=== PATIENT | female | born 1965 | race Caucasian/White ===

== ENCOUNTER 2025-07-19 16:46 | Inpatient (IN) ==
[2025-07-19] MEDS: IPRATROPIUM/ALBUTEROL 3 ML AMPUL.NEB NEB ONE (17:39)
[2025-07-19 17:55] LABS: Basophils # (Auto) 0.08 K/mcL (0.00-0.30); Basophils % (Auto) 1.1 % (0.0-2.0); Eosinophils # (Auto) 0.10 K/mcL (0.00-0.70); Eosinophils % (Auto) 1.3 % (0.0-7.0); Hematocrit 33.9 % (34.1-44.9); Hemoglobin 12.1 g/dL (11.2-15.7); Lymphocytes # (Auto) 2.27 K/mcL (1.50-4.80); Lymphocytes % (Auto) 30.2 % (15.5-49.0); Mean Corpuscular HGB Conc 35.7 g/dL (31.0-36.0); Monocytes # (Auto) 1.00 K/mcL (0.10-0.90); Monocytes % (Auto) 13.3 % (1.0-12.0); Neutrophils % (Auto) 54.0 % (38.0-78.0); Platelet Count 239 K/mcL (140-440); RBC 3.56 M/mcL (3.59-5.38); WBC 7.5 K/mcL (4.5-11.0)
[2025-07-19] MEDS: ACETAMINOPHEN 1,000 MG/100 ML BAG IV ONE (17:58)
[2025-07-19 18:08] LABS: ALT/SGPT 32 U/L (<40); AST/SGOT 52 U/L (<32); Albumin 4.4 gm/dL (3.2-5.2); Albumin/Globulin Ratio 1.8 (1.0-2.3); Alkaline Phosphatase 73 U/L (39-117); Anion Gap 10.0 (8.0-16.0); Bilirubin,Total 1.2 mg/dL (0.1-1.0); Blood Urea Nitrogen 5 mg/dL (8-23); Calcium 9.2 mg/dL (8.6-10.4); Carbon Dioxide 24 mmol/L (22-30); Chloride 83 mmol/L (96-108); Globulin 2.4 gm/dL (2.2-3.7); Glucose 132 mg/dL (70-105); Potassium 3.7 mmol/L (3.3-5.1); Sodium 117 mmol/L (133-145)
[2025-07-19 19:16] LABS: Thyroid Stimulating Hormone 1.34 uIU/mL (0.27-5.01)
[2025-07-19] MEDS: 0.9 % SODIUM CHLORIDE 1,000 ML IV ONE (19:37)
[2025-07-19] MEDS ORDERED: ALBUTEROL SULFATE 2.5 MG/3 ML NEBULIZER NEB PRN (20:33)
[2025-07-19] MEDS ORDERED: LACTULOSE 20 GM/30 ML ORAL.SOL PO PRN (20:33)
[2025-07-19] MEDS ORDERED: SENNOSIDES 1 TABLET PO PRN (20:33)
[2025-07-19] MEDS: 0.9 % SODIUM CHLORIDE 1,000 ML IV SCH (20:45)
[2025-07-19] MEDS: 0.9 % SODIUM CHLORIDE 10 ML SYRINGE IV SCH (21:37)
[2025-07-19 21:44] LABS: Sodium, Urine Random 13 mmol/L
[2025-07-19 22:17] LABS: Bacteria,Urine 0 /hpf (0); Bilirubin,Urine NEGATIVE (Negative); Color,Urine LT. YELLOW; Glucose,Urine (UA) NEGATIVE (Negative); Ketones,Urine NEGATIVE (Negative); Leukocyte Esterase,Urine NEGATIVE /uL (Negative); PH,Urine 7.0 (5.0-9.0); Protein,Urine NEGATIVE (Negative); Specific Gravity,Urine <= 1.005 (1.000-1.035); Urobilinogen,Urine 0.2 mg/dL
[2025-07-19 23:56] LABS: Sodium 127 mmol/L (133-145)
[2025-07-20] MEDS: DEXTROSE 5% IN WATER 1,000 ML IV SCH ×2 (00:08→08:49)
[2025-07-20] MEDS: ACETAMINOPHEN 325 MG TABLET PO PRN (03:07)
[2025-07-20 03:24] LABS: Sodium 132 mmol/L (133-145)
[2025-07-20 05:50] LABS: ALT/SGPT 24 U/L (<40); AST/SGOT 38 U/L (<32); Albumin 3.9 gm/dL (3.2-5.2); Albumin/Globulin Ratio 1.9 (1.0-2.3); Alkaline Phosphatase 63 U/L (39-117); Anion Gap 7.0 (8.0-16.0); Bilirubin,Direct 0.5 mg/dL (<0.3); Bilirubin,Total 1.2 mg/dL (0.1-1.0); Blood Urea Nitrogen 4 mg/dL (8-23); Calcium 9.3 mg/dL (8.6-10.4); Carbon Dioxide 25 mmol/L (22-30); Chloride 100 mmol/L (96-108); Globulin 2.1 gm/dL (2.2-3.7); Glucose 139 mg/dL (70-105); Phosphorous 3.1 mg/dL (2.5-4.5); Potassium 4.0 mmol/L (3.3-5.1); Sodium 132 mmol/L (133-145); Triglycerides 54 mg/dL (<150); Uric Acid 4.0 mg/dL (2.5-8.0)
[2025-07-20] MEDS: ONDANSETRON 4 MG/2 ML VIAL IV PRN (07:44)
[2025-07-20] MEDS: ENOXAPARIN 40 MG/0.4 ML SYRINGE SQ SCH (08:42)
[2025-07-20] MEDS: NICOTINE POLACRILEX 2 MG GUM CHEW/PARK PRN (08:42)
[2025-07-20 09:42] LABS: Sodium 133 mmol/L (133-145)
[2025-07-20] MEDS ORDERED: LORazepam 2 MG/ML VIAL IV PRN (10:00)
[2025-07-20] MEDS: NICOTINE 21 MG PATCH TOPICAL SCH (10:22)
[2025-07-20] MEDS: THIAMINE 100 MG in 0.9 % SODIUM CHLORIDE 50 ML IV SCH (10:25)
[2025-07-20] MEDS: FOLIC ACID 1 MG TABLET PO SCH (10:25)
[2025-07-20] MEDS: MULTIVIT,THER IRON,CA,FA & MIN 1 TABLET PO SCH (10:25)
[2025-07-20] MEDS: LOSARTAN 50 MG TABLET PO SCH (11:12)
[2025-07-20] MEDS: FLUTICASONE/SALMETEROL 50/100 INHALER #14 INH SCH (11:14)
[2025-07-20] MEDS: 0.9 % SODIUM CHLORIDE 10 ML SYRINGE IV SCH (15:11)
[2025-07-20] MEDS: DIAZEPAM 5 MG TABLET PO SCH (19:15)
[2025-07-21 06:37] LABS: Basophils # (Auto) 0.05 K/mcL (0.00-0.30); Basophils % (Auto) 1.0 % (0.0-2.0); Eosinophils # (Auto) 0.19 K/mcL (0.00-0.70); Eosinophils % (Auto) 3.8 % (0.0-7.0); Hematocrit 38.5 % (34.1-44.9); Hemoglobin 13.0 g/dL (11.2-15.7); Lymphocytes # (Auto) 1.67 K/mcL (1.50-4.80); Lymphocytes % (Auto) 33.3 % (15.5-49.0); Mean Corpuscular HGB Conc 33.8 g/dL (31.0-36.0); Monocytes # (Auto) 0.66 K/mcL (0.10-0.90); Monocytes % (Auto) 13.1 % (1.0-12.0); Neutrophils % (Auto) 48.6 % (38.0-78.0); Platelet Count 205 K/mcL (140-440); RBC 3.86 M/mcL (3.59-5.38); WBC 5.0 K/mcL (4.5-11.0)
[2025-07-21 06:43] LABS: ALT/SGPT 27 U/L (<40); AST/SGOT 36 U/L (<32); Albumin 4.1 gm/dL (3.2-5.2); Albumin/Globulin Ratio 1.6 (1.0-2.3); Alkaline Phosphatase 65 U/L (39-117); Anion Gap 8.0 (8.0-16.0); Bilirubin,Direct 0.4 mg/dL (<0.3); Bilirubin,Total 0.9 mg/dL (0.1-1.0); Blood Urea Nitrogen 7 mg/dL (8-23); Calcium 9.7 mg/dL (8.6-10.4); Carbon Dioxide 25 mmol/L (22-30); Chloride 103 mmol/L (96-108); Globulin 2.5 gm/dL (2.2-3.7); Glucose 96 mg/dL (70-105); Phosphorous 4.1 mg/dL (2.5-4.5); Potassium 4.5 mmol/L (3.3-5.1); Sodium 136 mmol/L (133-145); Triglycerides 83 mg/dL (<150); Uric Acid 3.7 mg/dL (2.5-8.0)
[2025-07-21] MEDS: DIAZEPAM 10 MG/2 ML SYRINGE IV PRN (10:00)
[2025-07-21 11:46] VITALS: TEMP 97; O2SAT 100
== END 2025-07-21 11:35 | disposition home or self-care (01) | DRG 641 ==
LOC: ED 16:46 → ICU 20:25
PROVIDERS: ADMIT Internal Medicine; ATTEND Internal Medicine

== ENCOUNTER 2025-08-22 13:21 | Inpatient (IN) ==
[2025-08-22 13:33] LABS: POC Blood Urea Nitrogen 6.0 (6-20); POC CO2 17.0 (22-30); POC Calcium, Ionized 1.07 (1.16-1.32); POC Glucose, Random 108.0 (70-105)
[2025-08-22] MEDS: ONDANSETRON 4 MG/2 ML VIAL IV ONE (13:53)
[2025-08-22] MEDS: ASPIRIN 81 MG TAB.CHEW CHEWED ONE (13:54)
[2025-08-22 14:02] LABS: Basophils # (Auto) 0.03 K/mcL (0.00-0.30); Basophils % (Auto) 0.3 % (0.0-2.0); Eosinophils # (Auto) 0.01 K/mcL (0.00-0.70); Eosinophils % (Auto) 0.1 % (0.0-7.0); Hematocrit 33.6 % (34.1-44.9); Hemoglobin 11.8 g/dL (11.2-15.7); Lymphocytes # (Auto) 1.77 K/mcL (1.50-4.80); Lymphocytes % (Auto) 15.2 % (15.5-49.0); Mean Corpuscular HGB Conc 35.1 g/dL (31.0-36.0); Monocytes # (Auto) 0.61 K/mcL (0.10-0.90); Monocytes % (Auto) 5.2 % (1.0-12.0); Neutrophils % (Auto) 79.0 % (38.0-78.0); Platelet Count 235 K/mcL (140-440); RBC 3.54 M/mcL (3.59-5.38); WBC 11.7 K/mcL (4.5-11.0)
[2025-08-22 14:24] LABS: ALT/SGPT 10 U/L (<40); AST/SGOT 24 U/L (<32); Albumin 4.3 gm/dL (3.2-5.2); Albumin/Globulin Ratio 1.7 (1.0-2.3); Alkaline Phosphatase 80 U/L (39-117); Anion Gap 18.0 (8.0-16.0); Bilirubin,Total 0.6 mg/dL (0.1-1.0); Blood Urea Nitrogen 7 mg/dL (8-23); Calcium 9.0 mg/dL (8.6-10.4); Carbon Dioxide 17 mmol/L (22-30); Chloride 91 mmol/L (96-108); Globulin 2.5 gm/dL (2.2-3.7); Glucose 103 mg/dL (70-105); Potassium 3.7 mmol/L (3.3-5.1); Sodium 126 mmol/L (133-145)
[2025-08-22 15:22] LABS: Bilirubin,Urine NEGATIVE (Negative); Color,Urine LT. YELLOW; Glucose,Urine (UA) NEGATIVE (Negative); Ketones,Urine 15 mg/dL (Negative); Leukocyte Esterase,Urine NEGATIVE /uL (Negative); PH,Urine 6.0 (5.0-9.0); Protein,Urine NEGATIVE (Negative); Specific Gravity,Urine 1.010 (1.000-1.035); Urobilinogen,Urine 0.2 mg/dL
[2025-08-22] MEDS: DIAZEPAM 10 MG/2 ML SYRINGE IV ONE (15:32)
[2025-08-22 16:12] LABS: Sodium, Urine Random 36 mmol/L
[2025-08-22] MEDS ORDERED: POTASSIUM CHLORIDE 40 MEQ in DEXTROSE 5% IN WATER 500 ML IV PRN (16:34)
[2025-08-22] MEDS ORDERED: METOCLOPRAMIDE 10 MG/2 ML VIAL IV PRN (16:34)
[2025-08-22] MEDS ORDERED: SENNOSIDES 1 TABLET PO PRN (16:34)
[2025-08-22] MEDS ORDERED: IPRATROPIUM/ALBUTEROL 3 ML AMPUL.NEB NEB PRN (16:34)
[2025-08-22] MEDS ORDERED: MAGNESIUM SULFATE 2 GM/50 ML BAG IV PRN (16:34)
[2025-08-22] MEDS ORDERED: ONDANSETRON 4 MG/2 ML VIAL IV PRN (16:34)
[2025-08-22] MEDS ORDERED: POTASSIUM CHLORIDE 20 MEQ TABLET PO PRN ×2 (16:34)
[2025-08-22] MEDS ORDERED: POLYETHYLENE GLYCOL 3350 17 GM PACKET PO PRN (16:34)
[2025-08-22] MEDS: MULTIVIT,THER IRON,CA,FA & MIN 1 TABLET PO SCH (16:45)
[2025-08-22] MEDS: 0.9 % SODIUM CHLORIDE 1,000 ML IV ONE (16:45)
[2025-08-22] MEDS: FOLIC ACID 1 MG TABLET PO SCH (16:45)
[2025-08-22] MEDS: ACETAMINOPHEN 325 MG TABLET PO PRN (16:54)
[2025-08-22] MEDS: THIAMINE 100 MG in 0.9 % SODIUM CHLORIDE 50 ML IV ONE ×2 (17:44→19:57)
[2025-08-22] MEDS: DIAZEPAM 10 MG/2 ML SYRINGE IV PRN (19:01)
[2025-08-22] MEDS: SODIUM CHLORIDE 1 GM TABLET PO SCH (20:05)
[2025-08-22] MEDS: DOCUSATE SODIUM 100 MG CAPSULE PO SCH (20:07)
[2025-08-22] MEDS: 0.9 % SODIUM CHLORIDE 10 ML SYRINGE IV SCH (20:07)
[2025-08-22] MEDS: NICOTINE 21 MG PATCH TOPICAL SCH (20:07)
[2025-08-23 06:39] LABS: Basophils # (Auto) 0.04 K/mcL (0.00-0.30); Basophils % (Auto) 0.7 % (0.0-2.0); Eosinophils # (Auto) 0.14 K/mcL (0.00-0.70); Eosinophils % (Auto) 2.4 % (0.0-7.0); Hematocrit 36.6 % (34.1-44.9); Hemoglobin 12.6 g/dL (11.2-15.7); Lymphocytes # (Auto) 2.54 K/mcL (1.50-4.80); Lymphocytes % (Auto) 44.3 % (15.5-49.0); Mean Corpuscular HGB Conc 34.4 g/dL (31.0-36.0); Monocytes # (Auto) 0.54 K/mcL (0.10-0.90); Monocytes % (Auto) 9.4 % (1.0-12.0); Neutrophils % (Auto) 43.0 % (38.0-78.0); Platelet Count 209 K/mcL (140-440); RBC 3.76 M/mcL (3.59-5.38); WBC 5.7 K/mcL (4.5-11.0)
[2025-08-23 06:52] LABS: ALT/SGPT 9 U/L (<40); AST/SGOT 21 U/L (<32); Albumin 3.9 gm/dL (3.2-5.2); Albumin/Globulin Ratio 1.7 (1.0-2.3); Alkaline Phosphatase 73 U/L (39-117); Anion Gap 8.0 (8.0-16.0); Bilirubin,Direct 0.5 mg/dL (<0.3); Bilirubin,Total 1.0 mg/dL (0.1-1.0); Blood Urea Nitrogen 7 mg/dL (8-23); Calcium 9.2 mg/dL (8.6-10.4); Carbon Dioxide 23 mmol/L (22-30); Chloride 106 mmol/L (96-108); Globulin 2.3 gm/dL (2.2-3.7); Glucose 82 mg/dL (70-105); Phosphorous 2.8 mg/dL (2.5-4.5); Potassium 4.2 mmol/L (3.3-5.1); Sodium 137 mmol/L (133-145); Triglycerides 109 mg/dL (<150); Uric Acid 4.9 mg/dL (2.5-8.0)
[2025-08-23] MEDS: ENOXAPARIN 40 MG/0.4 ML SYRINGE SQ SCH (08:49)
[2025-08-23] MEDS: LOSARTAN 50 MG TABLET PO SCH (08:49)
[2025-08-23] MEDS: THIAMINE 100 MG TABLET PO SCH (08:49)
[2025-08-23] MEDS: FLUTICASONE/SALMETEROL 50/100 INHALER #14 INH SCH (08:52)
[2025-08-23] MEDS: DIAZEPAM 10 MG/2 ML SYRINGE IV PRN (09:49)
[2025-08-24 07:52] LABS: ALT/SGPT 10 U/L (<40); AST/SGOT 21 U/L (<32); Albumin 3.9 gm/dL (3.2-5.2); Albumin/Globulin Ratio 1.6 (1.0-2.3); Alkaline Phosphatase 71 U/L (39-117); Anion Gap 12.0 (8.0-16.0); Bilirubin,Direct 0.3 mg/dL (<0.3); Bilirubin,Total 0.6 mg/dL (0.1-1.0); Blood Urea Nitrogen 8 mg/dL (8-23); Calcium 9.3 mg/dL (8.6-10.4); Carbon Dioxide 22 mmol/L (22-30); Chloride 108 mmol/L (96-108); Globulin 2.4 gm/dL (2.2-3.7); Glucose 98 mg/dL (70-105); Phosphorous 3.6 mg/dL (2.5-4.5); Potassium 4.3 mmol/L (3.3-5.1); Sodium 142 mmol/L (133-145); Triglycerides 98 mg/dL (<150); Uric Acid 5.2 mg/dL (2.5-8.0)
[2025-08-24 08:34] VITALS: TEMP 98.3; O2SAT 98
== END 2025-08-24 11:05 | disposition home or self-care (01) | DRG 897 ==
LOC: ED 13:21 → ICU 16:32
PROVIDERS: ADMIT Internal Medicine; ATTEND Internal Medicine